=== PATIENT | female | born 1990 | race Caucasian/White ===

== ENCOUNTER 2016-10-14 19:04 | Emergency (ER) | payer BC, OTHER ==
[2016-10-14 19:10] VITALS: TEMP 98.1
[2016-10-14] MEDS ORDERED: methylPREDNISolone SOD SUCC 125 MG/2 ML VIAL IVP ONE (19:18)
[2016-10-14] MEDS ORDERED: RANITIDINE 50 MG/2 ML VIAL IVP ONE (19:18)
--- NOTE | 2016-10-14 19:20 | EDPHY ---
H & P Stated Complaint: FACIAL SWELLING Time Seen by Provider: 10/14/16 19:14 HPI/ROS: CHIEF COMPLAINT: Bee sting HISTORY OF PRESENT ILLNESS: The patient is a 25-year-old healthy female who was mountain biking about an hour ago when she was stung in the lip by a bee. She has swelling of her upper lip and left side of her face and lower eyelid. No difficulty breathing. No urticaria. No wheezing. No GI symptoms. REVIEW OF SYSTEMS: Constitutional: denies: chills, fever, recent illness, recent injury EENTM: See HPI, denies: blurred vision, double vision, nose congestion Respiratory: denies: cough, shortness of breath Cardiac: denies: chest pain, irregular heart rate, lightheadedness, palpitations Gastrointestinal/Abdominal: denies: abdominal pain, diarrhea, nausea, vomiting, blood streaked stools Genitourinary: denies: dysuria, frequency, hematuria, pain Musculoskeletal: denies: joint pain, muscle pain Skin: denies: lesions, rash, jaundice, bruising Neurological: denies: headache, numbness, paresthesia, tingling, dizziness, weakness Hematologic/Lymphatic: denies: blood clots, easy bleeding, easy bruising Immunologic/allergic: denies: HIV/AIDS, transplant EXAM: GENERAL: Well-appearing, well-nourished and in no acute distress. HEAD: Atraumatic, normocephalic. EYES: Pupils equal round and reactive to light, extraocular movements intact, sclera anicteric, conjunctiva are normal. ENT: Significant edema of upper lip and left cheek and left lower eyelid. No intraoral swelling. No tongue edema. TMs normal, nares patent, oropharynx clear without exudates. Moist mucous membranes. NECK: Normal range of motion, supple without lymphadenopathy or JVD. LUNGS: Breath sounds clear to auscultation bilaterally and equal. No wheezes rales or rhonchi. HEART: Regular rate and rhythm without murmurs, rubs or gallops. ABDOMEN: Soft, nontender, normoactive bowel sounds. No guarding, no rebound. No masses appreciated. BACK: No CVA tenderness, no spinal tenderness, step-offs or deformities EXTREMITIES: Normal range of motion, no pitting or edema. No clubbing or cyanosis. NEUROLOGICAL: Cranial nerves II through XII grossly intact. Normal speech, normal gait. 5/5 strength, normal movement in all extremities, normal sensation PSYCH: Normal mood, normal affect. SKIN: Warm, dry, normal turgor, no visible rashes or lesions. Source: Patient Exam Limitations: No limitations - Personal History LMP (Females 10-55): 8-14 Days Ago Current Tetanus/Diphtheria Vaccine: Yes - Medical/Surgical History Hx Asthma: No Hx Chronic Respiratory Disease: No Hx Diabetes: No Hx Cardiac Disease: No Hx Renal Disease: No Hx Cirrhosis: No Hx Alcoholism: No Hx HIV/AIDS: No Hx Splenectomy or Spleen Trauma: No Other PMH: NO PMH - Family History Significant Family History: No pertinent family hx - Social History Smoking Status: Never smoked Alcohol Use: Sober Drug Use: None Constitutional: Initial Vital Signs Temperature (C) 36.7 C 10/14/16 19:05 Heart Rate 98 10/14/16 19:05 Respiratory Rate 18 10/14/16 19:05 Blood Pressure 120/87 H 10/14/16 19:05 O2 Sat (%) 97 10/14/16 19:05 O2 Delivery Mode Room Air Allergies/Adverse Reactions: No Known Allergies Allergy (Unverified 10/14/16 19:09) Home Medications: Medication Instructions Recorded NK [No Known Home Meds] 10/14/16 Medical Decision Making ED Course/Re-evaluation: 9:00 p.m. The patient's symptoms are improving she still has some swelling. She would like to go home. I encouraged her to continue taking Benadryl and Pepcid. She agrees with this plan. We discussed indications for returning. She has no swelling in her airway or shortness of breath. Differential Diagnosis: Partial list of the Differential diagnosis considered include but were not limited to; allergic reaction, envenomation and although unlikely based on the history and physical exam, I also considered cellulitis, infection. I discussed these differential diagnoses and the plan with the patient as well as the usual and expected course. The patient understands that the diagnosis is provisional and that in medicine we are not always correct and that further workup is often warranted. Usual and customary warnings were given. All of the patient's questions were answered. The patient was instructed to return to the emergency department should the symptoms at all worsen or return, otherwise to followup with the physician as we discussed. - Data Points Medications Given: Discontinued Medications Epinephrine HCl (Epinephrine) 0.3 mg IM EDNOW ONE Stop: 10/14/16 19:19 Last Admin: 10/14/16 21:28 Dose: Not Given Famotidine (Pepcid) 40 mg PO EDNOW ONE Stop: 10/14/16 20:25 Last Admin: 10/14/16 20:27 Dose: 40 mg Methylprednisolone Sodium Succinate (Solu-Medrol) 125 mg IVP EDNOW ONE Stop: 10/14/16 19:19 Last Admin: 10/14/16 21:28 Dose: Not Given Prednisone (Prednisone) 60 mg PO EDNOW ONE Stop: 10/14/16 20:23 Last Admin: 10/14/16 20:28 Dose: 60 mg Ranitidine HCl (Zantac) 50 mg IVP EDNOW ONE Stop: 10/14/16 19:19 Last Admin: 10/14/16 21:28 Dose: Not Given Departure - Departure Disposition: Home, Routine, Self-Care Clinical Impression: Allergic reaction Qualifiers: Encounter type: initial encounter Qualified Code(s): T78.40XA - Allergy, unspecified, initial encounter Condition: Fair Instructions: Allergies (ED) Referrals: Jessica Luevano MD [Medical Doctor] - As per Instructions
[2016-10-14] MEDS ORDERED: predniSONE 20 MG TAB PO ONE (20:22)
[2016-10-14] MEDS ORDERED: FAMOTIDINE 20 MG TAB PO ONE (20:24)
[2016-10-14 21:21] VITALS: BP 114/67; PULSE 71; RESP 16; O2SAT 96
== END 2016-10-14 21:21 | disposition home or self-care (01) ==
DX: T63.441A Toxic effect of venom of bees, accidental (unintentional), initial encounter (principal)
CPT/HCPCS: J0171; J2780